=== PATIENT | female | born 1935 | race Caucasian/White ===

== ENCOUNTER 2018-09-27 10:41 | Inpatient (IN) ==
[2018-09-27] MEDS ORDERED: ZANAFLEX PO PRN (14:32)
[2018-09-27] MEDS: NORCO 5/325 MG TAB PO PRN ×2 (14:51→21:22)
[2018-09-27 14:57] LABS: BASOPHILS % (AUTO) 0.6 % (0.2-1.0); EOSINOPHILS # (AUTO) 0.1 x10^3/uL (0.0-0.2); EOSINOPHILS % (AUTO) 1.9 % (0.9-2.9); HEMATOCRIT 34.3 % (36.0-47.0); HEMOGLOBIN 11.4 g/dL (12.0-16.0); LYMPHOCYTES # (AUTO) 1.5 X10^3/uL (1.3-2.9); LYMPHOCYTES % (AUTO) 26.7 % (21.0-51.0); MEAN CORPUSCULAR HEMOGLOBIN 28.2 pg (27.0-34.0); MEAN CORPUSCULAR HGB CONC 33.4 g/dL (33.0-35.0); MEAN CORPUSCULAR VOLUME 84.5 fL (80.0-100.0); MONOCYTES # (AUTO) 0.6 x10^3/uL (0.3-0.8); MONOCYTES % (AUTO) 10.7 % (0.0-13.0); NEUTROPHILS # (AUTO) 3.5 x10^3/uL (2.2-4.8); NEUTROPHILS % (AUTO) 60.1 % (42.0-75.0); PLATELET COUNT 159 X10^3/uL (150.0-450.0); RED BLOOD COUNT 4.05 X10^6/uL (3.5-5.4); RED CELL DISTRIBUTION WIDTH 14.4 % (11.6-16.5); WHITE BLOOD COUNT 5.8 X10^3/uL (3.6-10.0)
[2018-09-27 15:08] LABS: ALBUMIN 3.1 g/dL (3.4-5.0); CALCIUM 8.4 mg/dL (8.5-10.1); CARBON DIOXIDE 29.2 mmol/L (21-32); COR CA(FOR HYPOALB) 9.1 mg/dL (8.5-10.1); CREATININE 1.25 mg/dL (0.55-1.02); TOTAL PROTEIN 7.2 g/dL (6.4-8.2)
[2018-09-27] MEDS: AMBIEN PO SCH (21:20)
[2018-09-27] MEDS: NYSTATIN POWDER TOP SCH (21:20)
[2018-09-27] MEDS: ASPIRIN EC 81 MG PO SCH (21:20)
[2018-09-28] MEDS: ASPIRIN EC 81 MG PO SCH ×2 (08:31→20:41)
[2018-09-28] MEDS: NYSTATIN POWDER TOP SCH ×2 (08:33→20:41)
[2018-09-28] MEDS: MILK OF MAGNESIA PO SCH ×2 (11:10→20:41)
[2018-09-28] MEDS: NORCO 5/325 MG TAB PO PRN (11:13)
--- NOTE | 2018-09-28 13:49 | VAS ---
HISTORY: Status post left total knee arthroplasty. Pain swelling.. Study: Left lower extremity venous vascular examination: Multiplanar ultrasonographic examination of the deep venous system of the left lower extremity was performed using color, grayscale and pulsed Doppler imaging. Augmentation and compression techniques utilized. Comparison: None Findings: The common femoral vein, greater saphenous junction, superficial femoral vein and popliteal vein show normal color flow. No intraluminal filling defects are identified. The common femoral vein, superficial femoral vein and popliteal vein show normal augmentation and compression. IMPRESSION: 1. No evidence of deep venous thrombosis involving the left lower extremity. Reported By:
[2018-09-28] MEDS: AMBIEN PO SCH (20:41)
[2018-09-28] MEDS: COLACE CAP 100 MG PO SCH (20:41)
[2018-09-29] MEDS: ASPIRIN EC 81 MG PO SCH ×2 (08:33→20:45)
[2018-09-29] MEDS: MILK OF MAGNESIA PO SCH ×2 (08:33→20:49)
[2018-09-29] MEDS: NYSTATIN POWDER TOP SCH ×2 (08:34→20:48)
[2018-09-29] MEDS: NORCO 5/325 MG TAB PO PRN ×2 (14:50→20:46)
[2018-09-29] MEDS: AMBIEN PO SCH (20:45)
[2018-09-29] MEDS: COLACE CAP 100 MG PO SCH (20:49)
[2018-09-30 05:25] LABS: BASOPHILS % (AUTO) 0.4 % (0.2-1.0); EOSINOPHILS # (AUTO) 0.2 x10^3/uL (0.0-0.2); EOSINOPHILS % (AUTO) 3.5 % (0.9-2.9); HEMATOCRIT 32.6 % (36.0-47.0); HEMOGLOBIN 10.9 g/dL (12.0-16.0); LYMPHOCYTES # (AUTO) 1.6 X10^3/uL (1.3-2.9); LYMPHOCYTES % (AUTO) 33.6 % (21.0-51.0); MEAN CORPUSCULAR HEMOGLOBIN 28.7 pg (27.0-34.0); MEAN CORPUSCULAR HGB CONC 33.6 g/dL (33.0-35.0); MEAN CORPUSCULAR VOLUME 85.4 fL (80.0-100.0); MEAN PLATELET VOLUME 9.2 fL (7.4-11.0); MONOCYTES # (AUTO) 0.4 x10^3/uL (0.3-0.8); MONOCYTES % (AUTO) 9.4 % (0.0-13.0); NEUTROPHILS # (AUTO) 2.5 x10^3/uL (2.2-4.8); NEUTROPHILS % (AUTO) 53.1 % (42.0-75.0); PLATELET COUNT 168 X10^3/uL (150.0-450.0); RED BLOOD COUNT 3.81 X10^6/uL (3.5-5.4); RED CELL DISTRIBUTION WIDTH 14.8 % (11.6-16.5); WHITE BLOOD COUNT 4.7 X10^3/uL (3.6-10.0)
[2018-09-30 05:33] LABS: ALANINE AMINOTRANSFERASE 15 Units/L (12-78); ALKALINE PHOSPHATASE 79 Units/L (46-116); ASPARTATE AMINO TRANSFERASE 19 Units/L (15-37); BLOOD UREA NITROGEN 22 mg/dL (7-18); CALCIUM 8.5 mg/dL (8.5-10.1); CARBON DIOXIDE 29.6 mmol/L (21-32); CHLORIDE 104 mmol/L (98-107); COR CA(FOR HYPOALB) 9.3 mg/dL (8.5-10.1); COR NA(FOR HYPERGLY) 141 mmol/L (136-145); CREATININE 1.12 mg/dL (0.55-1.02); SODIUM 141 mmol/L (136-145); TOTAL PROTEIN 6.9 g/dL (6.4-8.2); eGFR NON BLACK RACES 50 (>60)
[2018-09-30] MEDS: NORCO 5/325 MG TAB PO PRN ×3 (08:30→20:42)
[2018-09-30] MEDS: ASPIRIN EC 81 MG PO SCH ×2 (08:30→20:43)
[2018-09-30] MEDS: NYSTATIN POWDER TOP SCH ×2 (09:32→21:10)
[2018-09-30] MEDS: MILK OF MAGNESIA PO SCH ×2 (09:32→21:10)
[2018-09-30] MEDS: AMBIEN PO SCH (20:43)
[2018-09-30] MEDS: PriLOSEC PO SCH (20:43)
[2018-09-30] MEDS: COLACE CAP 100 MG PO SCH (21:10)
[2018-10-01] MEDS: MILK OF MAGNESIA PO SCH ×2 (09:21→20:08)
[2018-10-01] MEDS: ASPIRIN EC 81 MG PO SCH ×2 (09:21→20:07)
[2018-10-01] MEDS: NYSTATIN POWDER TOP SCH ×2 (09:21→20:07)
[2018-10-01] MEDS: PriLOSEC PO SCH ×2 (09:21→20:07)
[2018-10-01] MEDS: NORCO 5/325 MG TAB PO PRN ×3 (09:36→23:22)
[2018-10-01] MEDS: AMBIEN PO SCH (20:07)
[2018-10-01] MEDS: COLACE CAP 100 MG PO SCH (20:08)
[2018-10-02] MEDS: NORCO 5/325 MG TAB PO PRN ×2 (06:23→20:53)
[2018-10-02] MEDS: MILK OF MAGNESIA PO SCH ×2 (08:29→20:53)
[2018-10-02] MEDS: PriLOSEC PO SCH ×2 (08:29→20:53)
[2018-10-02] MEDS: ASPIRIN EC 81 MG PO SCH ×2 (08:29→20:53)
[2018-10-02] MEDS: NYSTATIN POWDER TOP SCH ×2 (08:30→20:53)
[2018-10-02] MEDS ORDERED: BUTT CREAM (COMPOUND) TOP PRN (19:53)
[2018-10-02] MEDS: COLACE CAP 100 MG PO SCH (20:53)
[2018-10-02] MEDS: AMBIEN PO SCH (20:54)
[2018-10-03 05:14] LABS: BASOPHILS % (AUTO) 0.5 % (0.2-1.0); EOSINOPHILS # (AUTO) 0.3 x10^3/uL (0.0-0.2); EOSINOPHILS % (AUTO) 5.3 % (0.9-2.9); HEMATOCRIT 34.9 % (36.0-47.0); HEMOGLOBIN 11.5 g/dL (12.0-16.0); LYMPHOCYTES # (AUTO) 1.4 X10^3/uL (1.3-2.9); LYMPHOCYTES % (AUTO) 28.2 % (21.0-51.0); MEAN CORPUSCULAR HEMOGLOBIN 28.7 pg (27.0-34.0); MEAN CORPUSCULAR VOLUME 87.2 fL (80.0-100.0); MEAN PLATELET VOLUME 8.9 fL (7.4-11.0); MONOCYTES # (AUTO) 0.5 x10^3/uL (0.3-0.8); MONOCYTES % (AUTO) 9.7 % (0.0-13.0); NEUTROPHILS # (AUTO) 2.8 x10^3/uL (2.2-4.8); NEUTROPHILS % (AUTO) 56.3 % (42.0-75.0); PLATELET COUNT 199 X10^3/uL (150.0-450.0); RED CELL DISTRIBUTION WIDTH 14.4 % (11.6-16.5)
[2018-10-03 05:35] LABS: ALBUMIN 3.2 g/dL (3.4-5.0); CALCIUM 9.2 mg/dL (8.5-10.1); CARBON DIOXIDE 30.3 mmol/L (21-32); COR CA(FOR HYPOALB) 9.8 mg/dL (8.5-10.1); CREATININE 1.15 mg/dL (0.55-1.02); TOTAL PROTEIN 7.1 g/dL (6.4-8.2)
[2018-10-03] MEDS: PriLOSEC PO SCH ×2 (09:22→21:22)
[2018-10-03] MEDS: NORCO 5/325 MG TAB PO PRN ×2 (09:22→21:22)
[2018-10-03] MEDS: ASPIRIN EC 81 MG PO SCH ×2 (09:22→21:22)
[2018-10-03] MEDS: NYSTATIN POWDER TOP SCH ×2 (09:24→21:22)
[2018-10-03] MEDS: MILK OF MAGNESIA PO SCH ×2 (13:12→21:22)
[2018-10-03] MEDS: AMBIEN PO SCH (21:22)
[2018-10-03] MEDS: COLACE CAP 100 MG PO SCH ×2 (21:22→21:23)
[2018-10-04] MEDS: MILK OF MAGNESIA PO SCH (09:41)
[2018-10-04] MEDS: PriLOSEC PO SCH (09:42)
[2018-10-04] MEDS: ASPIRIN EC 81 MG PO SCH (09:42)
[2018-10-04] MEDS: NORCO 5/325 MG TAB PO PRN ×2 (09:42→13:22)
[2018-10-04] MEDS: NYSTATIN POWDER TOP SCH (09:44)
[2018-10-04 10:36] VITALS: BP 169/79
--- NOTE | 2018-10-05 18:30 | DR.UPDATE ---
H&P Update History and Physical Update: IS STATUS POST LEFT KNEE REPLACEMENT. SURGERY TOOK PLACE ON 09/24/18 BY IN [place], [place]. SHE WAS TRANSFERRED AND ADMITTED HERE FOR A SWINGBED STAY FOR PHYSICAL THERAPY. ON ARRIVAL, SHE IS NOTED WITH A DRESSING TO THE LEFT KNEE. DRESSING REMOVED, SUTURES NOTED TO BE INTACT WITH NO SIGNS OR SX INFECTION. THERE IS SOME BRUISING BEHIND THE LEFT KNEE. SHE REPORTS MILD PAIN TO THE LEFT KNEE, OTHERWISE, NO COMPLAINTS. WE WILL OBTAIN A CBC AND CMP. PHYSICAL THERAPY WILL BEGIN TO WORK WITH PATIENT TODAY. OTHERWISE, WE WILL CONTINUE TO MONITOR AND PERFORM DAILY DRESSING CHANGES AND WOUND CARE. Changes noted: NO Yes with the following:
--- NOTE | 2018-10-05 18:39 | PCM.PROG ---
Progress Note - Progress Note for Day of Date of Exam: 09/30/18 - Subjective Subjective: IS DAY 6 STATUS POST LEFT KNEE REPLACMENT. SHE IS SWINGBED STATUS FOR PHYSICAL THERAPY. TODAY, SHE IS ALERT AND ORIENTED, SITTING IN CHAIR ON MORNING ROUNDS. SHE REPORTS MILD PAIN TO THE LEFT KNEE, OTHERWISE, NO COMPLAINTS. ON EXAMINATION, HEART IS REGULAR IN RATE AND RHYTHM. BILATERAL LUNGS ARE NOTED WITH DIMINISHED LUNG SOUNDS THROUGHOUT. ABDOMEN IS ROUND, SOFT, AND NON-TEDNER WITH NORMAL BOWEL SOUNDS NOTED IN ALL QUADRANTS. WILLA INTACT TO LEFT KNEE WITH NO SIGNS OR SX INFECTION NOTED. HER VITALS THIS MORNING ARE 99.0-67-22-96%-140/65. LABS WERE OBTAINED. ABNORMAL LAB VALUES INCLUDE THE FOLLOWING: HGB 10.9, HCT 32.6, BUN 22, CREATININE 1.12, GLUCOSE 113, ALBUMIN 3.0. SHE REPORTS THAT PAIN IS WELL MANAGED WITH ORAL MEDICATIONS. SHE IS PARTICIPATING AND AMBULATING WELL WITH PHYSICAL THERAPY. WE WILL CONTINUE WITH CURRENT PLAN OF CARE AND CONTINUE TO MONITOR. - Past Medical Family Social History Past Med/Fam/Surg Hx: No changes since H&P Allergies: Allergies No Known Drug Allergies Allergy (Verified 09/27/18 15:19) - Review of Systems ROS: No change since H&P - Vital Signs and I&O's Vital Signs: Temperature 98.1 F Pulse Rate [Left Brachial] 80 Pulse Rate [Right Brachial] 73 Pulse Rate [Apical] 71 Respiratory Rate 18 Blood Pressure [Right Arm] 169/79 Blood Pressure [Left Arm] 145/72 Blood Pressure 115/60 O2 Sat by Pulse Oximetry 92 Intake and Output: Intake & Output 10/03/18 10/04/18 10/05/18 10/06/18 11:59 11:59 11:59 11:59 Intake Total 820 / 820 1400 / 1400 Balance 820 / 820 1400 / 1400 - Physical Exam Oriented: Normal Eyes: Normal Ear: Normal Nose: Normal Throat: Normal Respiratory: Generalized, Diminished Cardiovascular: Normal : Normal Auscultation: Bowel Sounds: Normal Palpation: Normal Skin: Wound (LEFT KNEE SURGICAL WOUND ) Musculoskeletal: Left, Knee, Tender Psychiatric: Normal Mood Description: Calm Affect: Normal Speech Pattern: Clear, Appropriate - Laboratory and Diagnostics Result Diagrams: 10/03/18 04:50 10/03/18 04:50 Labs: Laboratory WBC 5.0 X10^3/uL (3.6-10.0) 10/03/18 04:50 RBC 4.00 X10^6/uL (3.5-5.4) 10/03/18 04:50 Hgb 11.5 g/dL (12.0-16.0) L 10/03/18 04:50 Hct 34.9 % (36.0-47.0) L 10/03/18 04:50 MCV 87.2 fL (80.0-100.0) 10/03/18 04:50 MCH 28.7 pg (27.0-34.0) 10/03/18 04:50 MCHC 33.0 g/dL (33.0-35.0) 10/03/18 04:50 RDW 14.4 % (11.6-16.5) 10/03/18 04:50 Plt Count 199 X10^3/uL (150.0-450.0) 10/03/18 04:50 MPV 8.9 fL (7.4-11.0) 10/03/18 04:50 Neut % (Auto) 56.3 % (42.0-75.0) 10/03/18 04:50 Lymph % (Auto) 28.2 % (21.0-51.0) 10/03/18 04:50 [place] % (Auto) 9.7 % (0.0-13.0) 10/03/18 04:50 Eos % (Auto) 5.3 % (0.9-2.9) H 10/03/18 04:50 Baso % (Auto) 0.5 % (0.2-1.0) 10/03/18 04:50 Neut # (Auto) 2.8 x10^3/uL (2.2-4.8) 10/03/18 04:50 Lymph # (Auto) 1.4 X10^3/uL (1.3-2.9) 10/03/18 04:50 [place] # (Auto) 0.5 x10^3/uL (0.3-0.8) 10/03/18 04:50 Eos # (Auto) 0.3 x10^3/uL (0.0-0.2) H 10/03/18 04:50 Baso # (Auto) 0.0 X10^3/uL (0.0-0.1) 10/03/18 04:50 Absolute Nucleated RBC 0.0 /100WBC 10/03/18 04:50 Sodium 140 mmol/L (136-145) 10/03/18 04:50 Corrected Sodium 140 mmol/L (136-145) 10/03/18 04:50 Potassium 4.6 mmol/L (3.5-5.1) 10/03/18 04:50 Chloride 103 mmol/L (98-107) 10/03/18 04:50 Carbon Dioxide 30.3 mmol/L (21-32) 10/03/18 04:50 BUN 24 mg/dL (7-18) H 10/03/18 04:50 Creatinine 1.15 mg/dL (0.55-1.02) H 10/03/18 04:50 Est GFR (MDRD) Af Amer 58 (>60) L 10/03/18 04:50 Est GFR (MDRD) Non-Af 48 (>60) L 10/03/18 04:50 Glucose 113 mg/dL (65-99) H 10/03/18 04:50 Calcium 9.2 mg/dL (8.5-10.1) 10/03/18 04:50 Corrected Calcium 9.8 mg/dL (8.5-10.1) 10/03/18 04:50 Total Bilirubin 0.40 mg/dL (0.2-1.0) 10/03/18 04:50 AST 18 Units/L (15-37) 10/03/18 04:50 ALT 19 Units/L (12-78) 10/03/18 04:50 Alkaline Phosphatase 80 Units/L (46-116) 10/03/18 04:50 Total Protein 7.1 g/dL (6.4-8.2) 10/03/18 04:50 Albumin 3.2 g/dL (3.4-5.0) L 10/03/18 04:50 Globulin 3.9 g/dL (2.5-4.5) 10/03/18 04:50 Albumin/Globulin Ratio 0.8 Ratio (1.1-2.1) L 10/03/18 04:50 - Plan (1) S/P knee replacement Status: Acute Qualifiers: Laterality: left Qualified Code(s): Z96.652 - Presence of left artificial knee joint Plan: WOUND CARE, PAIN MANAGMENT, PHYSICAL THERAPY, CONTINUE TO MONITOR (2) GERD (gastroesophageal reflux disease) Status: Acute Qualifiers: Esophagitis presence: esophagitis presence not specified Qualified Code(s): K21.9 - Gastro-esophageal reflux disease without esophagitis Plan: CONTINUE OMEPRAZOLE (3) HTN (hypertension) Status: Acute Qualifiers: Hypertension type: essential hypertension Qualified Code(s): I10 - Essential (primary) hypertension Plan: CONTINUE LISINOPRIL, CONTINUE TO MONITOR (4) Hyperlipidemia Status: Acute Qualifiers: Hyperlipidemia type: mixed hyperlipidemia Qualified Code(s): E78.2 - Mixed hyperlipidemia Plan: CONTINUE ATORVASTATIN
--- NOTE | 2018-10-05 18:47 | PCM.PROG ---
Progress Note - Progress Note for Day of Date of Exam: 10/03/18 - Subjective Subjective: IS DAY 9 STATUS POST LEFT KNEE REPLACMENT. SHE IS SWINGBED STATUS FOR PHYSICAL THERAPY. TODAY, SHE IS ALERT AND ORIENTED, SITTING IN CHAIR ON MORNING ROUNDS. SHE REPORTS MILD PAIN TO THE LEFT KNEE, OTHERWISE, NO COMPLAINTS. ON EXAMINATION, HEART IS REGULAR IN RATE AND RHYTHM. BILATERAL LUNGS ARE NOTED WITH DIMINISHED LUNG SOUNDS THROUGHOUT. ABDOMEN IS ROUND, SOFT, AND NON-TEDNER WITH NORMAL BOWEL SOUNDS NOTED IN ALL QUADRANTS. WILLA INTACT TO LEFT KNEE WITH NO SIGNS OR SX INFECTION NOTED. HER VITALS THIS MORNING ARE 97.9-66-18-94%-147/65. LABS WERE OBTAINED. ABNORMAL LAB VALUES INCLUDE THE FOLLOWING: HGB 11.5, HCT 34.9, B. SUN 24, CREATININE 1.15, GLUCOSE 113, ALBUMIN 3.2. SHE REPORTS THAT PAIN IS WELL MANAGED WITH ORAL MEDICATIONS. SHE IS PARTICIPATING AND AMBULATING WELL WITH PHYSICAL THERAPY. SHE IS EXPECTED TO BE DISCHARGED TOMORROW. SHE WILL BE SET UP WITH OUTPATIENT PHYSICAL THERAPY. WE WILL CONTINUE WITH CURRENT PLAN OF CARE AND CONTINUE TO MONITOR. - Past Medical Family Social History Past Med/Fam/Surg Hx: No changes since H&P Allergies: Allergies No Known Drug Allergies Allergy (Verified 09/27/18 15:19) - Review of Systems ROS: No change since H&P - Vital Signs and I&O's Vital Signs: Temperature 98.1 F Pulse Rate [Left Brachial] 80 Pulse Rate [Right Brachial] 73 Pulse Rate [Apical] 71 Respiratory Rate 18 Blood Pressure [Right Arm] 169/79 Blood Pressure [Left Arm] 145/72 Blood Pressure 115/60 O2 Sat by Pulse Oximetry 92 Intake and Output: Intake & Output 10/03/18 10/04/18 10/05/18 10/06/18 11:59 11:59 11:59 11:59 Intake Total 820 / 820 1400 / 1400 Balance 820 / 820 1400 / 1400 - Physical Exam Oriented: Normal Eyes: Normal Ear: Normal Nose: Normal Throat: Normal Respiratory: Generalized, Diminished Cardiovascular: Normal : Normal Auscultation: Bowel Sounds: Normal Palpation: Normal Skin: Wound (LEFT KNEE SURGICAL WOUND ) Musculoskeletal: Left, Knee, Tender Psychiatric: Normal Mood Description: Calm Affect: Normal Speech Pattern: Clear, Appropriate - Laboratory and Diagnostics Result Diagrams: 10/03/18 04:50 10/03/18 04:50 Labs: Laboratory WBC 5.0 X10^3/uL (3.6-10.0) 10/03/18 04:50 RBC 4.00 X10^6/uL (3.5-5.4) 10/03/18 04:50 Hgb 11.5 g/dL (12.0-16.0) L 10/03/18 04:50 Hct 34.9 % (36.0-47.0) L 10/03/18 04:50 MCV 87.2 fL (80.0-100.0) 10/03/18 04:50 MCH 28.7 pg (27.0-34.0) 10/03/18 04:50 MCHC 33.0 g/dL (33.0-35.0) 10/03/18 04:50 RDW 14.4 % (11.6-16.5) 10/03/18 04:50 Plt Count 199 X10^3/uL (150.0-450.0) 10/03/18 04:50 MPV 8.9 fL (7.4-11.0) 10/03/18 04:50 Neut % (Auto) 56.3 % (42.0-75.0) 10/03/18 04:50 Lymph % (Auto) 28.2 % (21.0-51.0) 10/03/18 04:50 [place] % (Auto) 9.7 % (0.0-13.0) 10/03/18 04:50 Eos % (Auto) 5.3 % (0.9-2.9) H 10/03/18 04:50 Baso % (Auto) 0.5 % (0.2-1.0) 10/03/18 04:50 Neut # (Auto) 2.8 x10^3/uL (2.2-4.8) 10/03/18 04:50 Lymph # (Auto) 1.4 X10^3/uL (1.3-2.9) 10/03/18 04:50 [place] # (Auto) 0.5 x10^3/uL (0.3-0.8) 10/03/18 04:50 Eos # (Auto) 0.3 x10^3/uL (0.0-0.2) H 10/03/18 04:50 Baso # (Auto) 0.0 X10^3/uL (0.0-0.1) 10/03/18 04:50 Absolute Nucleated RBC 0.0 /100WBC 10/03/18 04:50 Sodium 140 mmol/L (136-145) 10/03/18 04:50 Corrected Sodium 140 mmol/L (136-145) 10/03/18 04:50 Potassium 4.6 mmol/L (3.5-5.1) 10/03/18 04:50 Chloride 103 mmol/L (98-107) 10/03/18 04:50 Carbon Dioxide 30.3 mmol/L (21-32) 10/03/18 04:50 BUN 24 mg/dL (7-18) H 10/03/18 04:50 Creatinine 1.15 mg/dL (0.55-1.02) H 10/03/18 04:50 Est GFR (MDRD) Af Amer 58 (>60) L 10/03/18 04:50 Est GFR (MDRD) Non-Af 48 (>60) L 10/03/18 04:50 Glucose 113 mg/dL (65-99) H 10/03/18 04:50 Calcium 9.2 mg/dL (8.5-10.1) 10/03/18 04:50 Corrected Calcium 9.8 mg/dL (8.5-10.1) 10/03/18 04:50 Total Bilirubin 0.40 mg/dL (0.2-1.0) 10/03/18 04:50 AST 18 Units/L (15-37) 10/03/18 04:50 ALT 19 Units/L (12-78) 10/03/18 04:50 Alkaline Phosphatase 80 Units/L (46-116) 10/03/18 04:50 Total Protein 7.1 g/dL (6.4-8.2) 10/03/18 04:50 Albumin 3.2 g/dL (3.4-5.0) L 10/03/18 04:50 Globulin 3.9 g/dL (2.5-4.5) 10/03/18 04:50 Albumin/Globulin Ratio 0.8 Ratio (1.1-2.1) L 10/03/18 04:50 - Plan (1) S/P knee replacement Status: Acute Qualifiers: Laterality: left Qualified Code(s): Z96.652 - Presence of left artificial knee joint Plan: WOUND CARE, PAIN MANAGMENT, PHYSICAL THERAPY, CONTINUE TO MONITOR (2) GERD (gastroesophageal reflux disease) Status: Acute Qualifiers: Esophagitis presence: esophagitis presence not specified Qualified Code(s): K21.9 - Gastro-esophageal reflux disease without esophagitis Plan: CONTINUE OMEPRAZOLE (3) HTN (hypertension) Status: Acute Qualifiers: Hypertension type: essential hypertension Qualified Code(s): I10 - Essential (primary) hypertension Plan: CONTINUE LISINOPRIL, CONTINUE TO MONITOR (4) Hyperlipidemia Status: Acute Qualifiers: Hyperlipidemia type: mixed hyperlipidemia Qualified Code(s): E78.2 - Mixed hyperlipidemia Plan: CONTINUE ATORVASTATIN
--- NOTE | 2018-10-21 00:44 | DR.CARTERD ---
- Discharge Summary for: Discharge Summary for Date of:: 10/04/18 - Admission Date Date of Admission: 09/27/18 - Admission Diagnoses Admission Diagnosis: (1) S/P knee replacement (2) GERD (gastroesophageal reflux disease) (3) HTN (hypertension) (4) Hyperlipidemia - Discharge Date Discharge Date: 10/04/18 - Discharge Diagnoses Discharge Diagnosis: (1) S/P knee replacement (2) GERD (gastroesophageal reflux disease) (3) HTN (hypertension) (4) Hyperlipidemia - Hospital Course Hospital Course: DAY ONE, IS STATUS POST LEFT KNEE REPLACEMENT. SURGERY TOOK PLACE ON 09/24/18 BY IN [place], [place]. SHE WAS TRANSFERRED AND ADMITTED HERE FOR A SWINGBED STAY FOR PHYSICAL THERAPY. ON ARRIVAL, SHE WAS NOTED WITH A DRESSING TO THE LEFT KNEE. DRESSING REMOVED, SUTURES NOTED TO BE INTACT WITH NO SIGNS OR SX INFECTION. THERE WAS SOME BRUISING BEHIND THE LEFT KNEE. SHE REPORTED MILD PAIN TO THE LEFT KNEE, OTHERWISE, NO COMPLAINTS. WE OBTAINED A CBC AND CMP. PHYSICAL THERAPY BEGAN TO WORK WITH PATIENT . WE CONTINUED TO MONITOR AND PERFORM DAILY DRESSING CHANGES AND WOUND CARE. DAY FOUR, IS DAY 6 STATUS POST LEFT KNEE REPLACMENT. SHE WAS A SWINGBED STATUS FOR PHYSICAL THERAPY. TODAY, SHE WAS ALERT AND ORIENTED, SITTING IN CHAIR ON MORNING ROUNDS. SHE REPORTED MILD PAIN TO THE LEFT KNEE, OTHERWISE, NO COMPLAINTS. ON EXAMINATION, HEART WAS REGULAR IN RATE AND RHYTHM. BILATERAL LUNGS WERE NOTED WITH DIMINISHED LUNG SOUNDS THROUGHOUT. ABDOMEN WAS ROUND, SOFT, AND NON-TEDNER WITH NORMAL BOWEL SOUNDS NOTED IN ALL QUADRANTS. WILLA INTACT TO LEFT KNEE WITH NO SIGNS OR SX INFECTION NOTED. HER VITALS THIS MORNING WERE 99.0-67-22-96%-140/65. LABS WERE OBTAINED. ABNORMAL LAB VALUES INCLUDED THE FOLLOWING: HGB 10.9, HCT 32.6, BUN 22, CREATININE 1.12, GLUCOSE 113, ALBUMIN 3.0. SHE REPORTS THAT PAIN IS WELL MANAGED WITH ORAL MEDICATIONS. SHE WAS PARTICIPATING AND AMBULATING WELL WITH PHYSICAL THERAPY. WE CONTINUED WITH CURRENT PLAN OF CARE AND CONTINUED TO MONITOR. DAY SEVEN, WAS DAY 9 STATUS POST LEFT KNEE REPLACMENT. SHE WAS SWINGBED STATUS FOR PHYSICAL THERAPY. TODAY, SHE WAS ALERT AND ORIENTED, SITTING IN CHAIR ON MORNING ROUNDS. SHE REPORTED MILD PAIN TO THE LEFT KNEE, OTHERWISE, NO COMPLAINTS. ON EXAMINATION, HEART WAS REGULAR IN RATE AND RHYTHM. BILATERAL LUNGS WERE NOTED WITH DIMINISHED LUNG SOUNDS THROUGHOUT. ABDOMEN WAS ROUND, SOFT, AND NON-TEDNER WITH NORMAL BOWEL SOUNDS NOTED IN ALL QUADRANTS. WILLA INTACT TO LEFT KNEE WITH NO SIGNS O R SX INFECTION NOTED. HER VITALS THIS MORNING ARE 97.9-66-18-94%-147/65. LABS WERE OBTAINED. ABNORMAL LAB VALUES INCLUDED THE FOLLOWING: HGB 11.5, HCT 34.9, BUN 24, CREATININE 1.15, GLUCOSE 113, ALBUMIN 3.2. SHE REPORTS THAT PAIN IS WELL MANAGED WITH ORAL MEDICATIONS. SHE WAS PARTICIPATING AND AMBULATING WELL WITH PHYSICAL THERAPY. SHE WAS EXPECTED TO BE DISCHARGED TOMORROW. SHE IS TO BE SET UP WITH OUTPATIENT PHYSICAL THERAPY. WE CONTINUED WITH CURRENT PLAN OF CARE AND CONTINUED TO MONITOR. DAY EIGHT, PATIENT SITTING UP IN CHAIR ON MORNING ROUNDS. PATIENT VOICED ZERO COMPLAINTS THIS AM. NO SIGNS AND SYMPTOMS OF ACUTE DISTRESS NOTED. PATIENT HAS BEEN PERFORMING WELL WITH PHYSICAL THERAPY. VITALS WERE STABLE. WE PLANNED FOR DISCHARGE. INSTRUCTIONS FOR MEDICATIONS AND FOLLOW UP WERE DISCUSSED WITH PATIENT AND FAMILY, BOTH VOICED UNDERSTANDING. PATIENT WAS DISCHARGED HOME IN STABLE CONDITION WITH FAMILY. - Discharge Medications Discharge Medications: Home Medication List aspirin [Aspir-81] 81 mg PO BID 09/27/18 [History] atorvastatin 20 mg PO HS 09/27/18 [History] gabapentin 600 mg PO DAILY 09/27/18 [History] hydrocodone-acetaminophen [[place]] 1 - 2 tab PO Q4-6H PRN 09/27/18 [History] lisinopril 20 mg PO DAILY 09/27/18 [History] methocarbamol 500 mg PO TID PRN 09/27/18 [History] omeprazole 40 mg PO DAILY 09/27/18 [History] Prescriptions: - Discharge Disposition Discharge Disposition: PATIENT TO FOLLOW UP IN OUR OFFICE IN ONE WEEK AND WITH DR. ORTIZ ON NEXT AVAILABLE APPOINTMENT TIME.
== END 2018-10-04 14:25 | disposition home or self-care (01) | DRG 950 ==
LOC: MED/SURG 14:07
PROVIDERS: ADMIT Internal Medicine; ATTEND Internal Medicine
DX: Z96.652 Presence of left artificial knee joint; E78.2 Mixed hyperlipidemia; K21.9 Gastro-esophageal reflux disease without esophagitis; I10 Essential (primary) hypertension; M25.562 Pain in left knee; Z51.89 Encounter for other specified aftercare

== ENCOUNTER 2025-01-20 13:43 | Observation (INO) ==
[2025-01-20] MEDS: NS 1,000 ML IV 1,000 ML IV SCH (15:34)
--- NOTE | 2025-01-20 16:13 | EKG ---
Test Reason : new admission Blood Pressure : */* mmHG Vent. Rate : 78 BPM Atrial Rate : 78 BPM P-R Int : 202 ms QRS Dur : 98 ms QT Int : 370 ms P-R-T Axes : 60 -6 28 degrees QTc Int : 421 ms Normal sinus rhythm Normal ECG No previous ECGs available Confirmed by Nato Farris MD ([id number]) on 01/21/2025 7:28:18 AM Referred By: Confirmed By: Nato Farris MD
[2025-01-20 18:07] VITALS: BMI 26.4
[2025-01-20 19:08] LABS: BASOPHILS # (AUTO) 0.1 X10^3/uL (0.0-0.1); BASOPHILS % (AUTO) 1.1 % (0.2-1.0); EOSINOPHILS # (AUTO) 0.1 x10^3/uL (0.0-0.2); EOSINOPHILS % (AUTO) 1.5 % (0.9-2.9); HEMATOCRIT 33.1 % (36.0-47.0); HEMOGLOBIN 11.1 g/dL (12.0-16.0); LYMPHOCYTES # (AUTO) 1.8 X10^3/uL (1.3-2.9); LYMPHOCYTES % (AUTO) 31.6 % (21.0-51.0); MEAN CORPUSCULAR HEMOGLOBIN 26.5 pg (27.0-34.0); MEAN CORPUSCULAR HGB CONC 33.4 g/dL (33.0-35.0); MEAN CORPUSCULAR VOLUME 79.3 fL (80.0-100.0); MONOCYTES # (AUTO) 0.5 x10^3/uL (0.3-0.8); MONOCYTES % (AUTO) 7.9 % (0.0-13.0); NEUTROPHILS # (AUTO) 3.3 x10^3/uL (2.2-4.8); NEUTROPHILS % (AUTO) 57.9 % (42.0-75.0); PLATELET COUNT 200 X10^3/uL (150.0-450.0); RED BLOOD COUNT 4.18 X10^6/uL (3.5-5.4); RED CELL DISTRIBUTION WIDTH 15.4 % (11.6-16.5); WHITE BLOOD COUNT 5.8 X10^3/uL (3.6-10.0)
[2025-01-20 19:38] LABS: ALBUMIN 2.7 g/dL (3.4-5.0); CARBON DIOXIDE 26.5 mmol/L (21-32); CREATININE 1.47 mg/dL (0.55-1.02); POTASSIUM 3.6 mmol/L (3.5-5.1); TOTAL PROTEIN 6.9 g/dL (6.4-8.2)
[2025-01-20] MEDS ORDERED: CONSULT PHARMACY - POTASSIUM & MAGNESIUM XX SCH (21:00)
[2025-01-20] MEDS: K-DUR TAB 20 MEQ PO SCH (21:24)
[2025-01-21 04:45] VITALS: RESP 18
[2025-01-21 05:18] LABS: ALANINE AMINOTRANSFERASE 10 Units/L (12-78); ALBUMIN 2.7 g/dL (3.4-5.0); ALKALINE PHOSPHATASE 115 Units/L (46-116); ASPARTATE AMINO TRANSFERASE 17 Units/L (15-37); BLOOD UREA NITROGEN 17 mg/dL (7-18); CALCIUM 9.1 mg/dL (8.5-10.1); CARBON DIOXIDE 26.3 mmol/L (21-32); CHLORIDE 101 mmol/L (98-107); COR CA(FOR HYPOALB) 10.1 mg/dL (8.5-10.1); CREATININE 1.22 mg/dL (0.55-1.02); GLUCOSE 104 mg/dL (65-99); MAGNESIUM 1.9 mg/dL (2.0-2.9); POTASSIUM 4.2 mmol/L (3.5-5.1); SODIUM 134 mmol/L (136-145); TOTAL PROTEIN 7.1 g/dL (6.4-8.2); eGFR NON BLACK RACES 44 (>60)
[2025-01-21 06:53] LABS: EOSINOPHILS # (AUTO) 0.1 x10^3/uL (0.0-0.2); MEAN CORPUSCULAR VOLUME 80.3 fL (80.0-100.0); MONOCYTES # (AUTO) 0.5 x10^3/uL (0.3-0.8)
[2025-01-21 06:57] LABS: BASOPHILS % (AUTO) 0.8 % (0.2-1.0); EOSINOPHILS % (AUTO) 2.5 % (0.9-2.9); HEMATOCRIT 35.3 % (36.0-47.0); HEMOGLOBIN 11.5 g/dL (12.0-16.0); LYMPHOCYTES # (AUTO) 1.7 X10^3/uL (1.3-2.9); LYMPHOCYTES % (AUTO) 30.1 % (21.0-51.0); MEAN CORPUSCULAR HEMOGLOBIN 26.2 pg (27.0-34.0); MEAN CORPUSCULAR HGB CONC 32.7 g/dL (33.0-35.0); MEAN PLATELET VOLUME 9.7 fL (7.4-11.0); MONOCYTES % (AUTO) 9.4 % (0.0-13.0); NEUTROPHILS # (AUTO) 3.2 x10^3/uL (2.2-4.8); NEUTROPHILS % (AUTO) 57.2 % (42.0-75.0); PLATELET COUNT 181 X10^3/uL (150.0-450.0); RED CELL DISTRIBUTION WIDTH 15.5 % (11.6-16.5); WHITE BLOOD COUNT 5.7 X10^3/uL (3.6-10.0)
[2025-01-21] MEDS ORDERED: CONSULT PHARMACY - POTASSIUM & MAGNESIUM XX SCH (07:00)
[2025-01-21 07:29] LABS: PLATELET MORPHOLOGY COMMENT NORMAL (NORMAL)
[2025-01-21] MEDS: READI-CAT 2 ONE (09:12)
[2025-01-21] MEDS: OMNIPAQUE 350 mg/mL 100 mL BTL 100 ML ONE (09:12)
[2025-01-21] MEDS: NS 500 ML IV 500 ML IV ONE (09:12)
[2025-01-21] MEDS ORDERED: AMBIEN PO PRN (10:12)
[2025-01-21] MEDS: SYNTHROID 50 mcg TAB PO SCH (11:28)
[2025-01-21] MEDS: LIPITOR TAB 10 MG PO SCH (11:28)
[2025-01-21] MEDS: NORVASC TAB 5 MG PO SCH (11:29)
[2025-01-21] MEDS: PROTONIX TAB 40 MG PO SCH (11:29)
--- NOTE | 2025-01-21 11:34 | CT ---
EXAMINATION:ABDCMEN/PELVIS WITH CONHISTORY:Weakness, N/V, weight loss; .COMPARISON:None.TECHNIQUE:Postcontrast CT abdomen and pelvis was performed.. Reformatted images were obtained as well. Oral contrast was utilized.The above CT scan was done with automated exposure control and the mA and kV was adjusted to obtain quality images according to patient size.FINDINGS:Lung bases: No acute findings.Liver: No acute finding or focal lesion.GB/Biliary: Cholecystectomy. No dilated ductSpleen: Normal size and densityPancreas: No acute findings. Atrophy. No pseudocyst. Dilated pancreatic duct measuring 4 mm which may represent chronic pancreatitisAdrenal Glands: No massKidneys: No obstructing stone or hydronephrosis. Heterogeneous solid mass in the right mid and upper pole of the kidney measuring 6.5 x 6.3 x 6.7 cm. This may represent a renal cell carcinoma. This extends to the hilum.Abdominal aorta: Tapers normally. Atherosclerotic calcification. Mesenteric vessels are patent.Retroperitoneum: No pathologically enlarged lymph nodes.Bowel: No thickened or dilated loops of bowel, free fluid, free air, pneumatosis or abscess. Moderate stool. Surgical clips in the right lower quadrant may represent appendectomy. Appendix not seen. No inflammatory process in the right lower quadrant. No CT evidence for diverticulitis or appendicitisBladder/: Ureters and bladder unremarkable. Bladder is partially distended. Hysterectomy. No pelvic or adnexal mass noted.Osseous: Minimal grade 1 spondylolisthesis at L5-S1. No acute findings or bony lesions.IMPRESSION:Solid mass in the right mid to upper pole of the kidney highly suspicious for renal cell neoplasm.No CT evidence for appendicitis, obstruction or diverticulitis. Possible appendectomy.Minimal wall thickening in the bladder may represent lack of distention or cystitis. Correlate with urinalysisTHIS IS AN ELECTRONICALLY VERIFIED FINAL REPORT01/21/2025 11:30 AM - Electronically signed by Ryan Juarez MD
--- NOTE | 2025-01-21 11:37 | RAD ---
EXAM: CHEST, 1 VIEW HISTORY: Weakness, N/V, weight loss; COMPARISON: Prior study or studies were utilized for comparison during interpretation with the most relevant lidia ed 09/08/2020 TECHNIQUE: CHEST, 1 VIEW FINDINGS: Chest: Lines and tubes: None Mediastinum: Cardiac and mediastinal shadow is within normal limits for size and contour. Pulmonary vessels: No pulmonary vascular congestion. Lung barrow: No suspicious airspace opacity. Pleura: No effusion. No pneumothorax. Bones and soft tissues: No acute osseous or soft tissue abnormality. IMPRESSION: 1. No acute cardiopulmonary abnormality THIS IS AN ELECTRONICALLY VERIFIED FINAL REPORT 01/21/2025 11:34 AM - Electronically signed by iGo Quinonez MD
--- NOTE | 2025-01-21 12:20 | DR.H&P ---
H&P History & Physical for Day of: H&P Date: 01/21/25 Chief Complaint Chief Complaint: weight loss History of Present Illness History of Present Illness: Patient with approximately 31 pound weight loss over the last 4 months. Was last seen at her PCPs office in August 2024 and then again yesterday. She has had some falls at home since those visits. She denies any trouble swallowing like she had 2 years ago when she needed an esophageal dilation. She reports she just does not feel like eating. Denies any constipation, diarrhea, abdominal pain, dysphagia, or nausea/vomiting. ROS: 12 point ROS otherwise negative. PE: Elderly female in no acute distress sitting in the bedside chair. Head NCAT, EOMI, hearing intact conversation, neck full range of motion, trachea midline. Heart regular rate and rhythm. Lungs clear bilaterally. Belly is soft and nontender with bowel sounds present. Mood and affect are appropriate. No swelling of her extremities with good range of motion. Past Medical History Past Medical History: Dyslipidemia, GERD, Gout and Hypertension Past Surgical History Surgical History: Hysterectomy, Ortho Surgery, Tonsillectomy and Other Family History Family Medical History: Coronary Artery Disease Social History Does any household member use tobacco: No Alcohol Use: None Drug Use: None Medications Home Medications: Home Medications Medication Instructions Recorded Confirmed Type amlodipine 5 mg tablet 5 mg PO BID 02/06/24 01/20/25 History levothyroxine 50 mcg tablet 50 mcg PO QDAY 02/06/24 01/20/25 History pantoprazole 40 mg tablet,delayed 40 mg PO QDAY 02/06/24 01/20/25 History release zolpidem 10 mg tablet 10 mg PO QPM PRN 02/06/24 01/20/25 History atorvastatin 10 mg tablet 10 mg PO QDAY 09/08/24 01/20/25 History Allergies Allergies Allergy/AdvReac Type Severity Reaction Status Date / Time No Known Drug Allergies Allergy Verified 09/29/21 12:27 Labs 01/21/25 05:35 01/21/25 04:48 Labs: Laboratory WBC 5.7 X10^3/uL (3.6-10.0) 01/21/25 05:35 RBC 4.40 X10^6/uL (3.5-5.4) 01/21/25 05:35 Hgb 11.5 g/dL (12.0-16.0) L 01/21/25 05:35 Hct 35.3 % (36.0-47.0) L 01/21/25 05:35 MCV 80.3 fL (80.0-100.0) 01/21/25 05:35 MCH 26.2 pg (27.0-34.0) L 01/21/25 05:35 MCHC 32.7 g/dL (33.0-35.0) L 01/21/25 05:35 RDW 15.5 % (11.6-16.5) 01/21/25 05:35 Plt Count 181 X10^3/uL (150.0-450.0) 01/21/25 05:35 Plt Count Comment Adequate (ADEQUATE) 01/21/25 05:35 MPV 9.7 fL (7.4-11.0) 01/21/25 05:35 Neut % (Auto) 57.2 % (42.0-75.0) 01/21/25 05:35 Lymph % (Auto) 30.1 % (21.0-51.0) 01/21/25 05:35 [place] % (Auto) 9.4 % (0.0-13.0) 01/21/25 05:35 Eos % (Auto) 2.5 % (0.9-2.9) 01/21/25 05:35 Baso % (Auto) 0.8 % (0.2-1.0) 01/21/25 05:35 Neut # (Auto) 3.2 x10^3/uL (2.2-4.8) 01/21/25 05:35 Lymph # (Auto) 1.7 X10^3/uL (1.3-2.9) 01/21/25 05:35 [place] # (Auto) 0.5 x10^3/uL (0.3-0.8) 01/21/25 05:35 Eos # (Auto) 0.1 x10^3/uL (0.0-0.2) 01/21/25 05:35 Baso # (Auto) 0.0 X10^3/uL (0.0-0.1) 01/21/25 05:35 Absolute Nucleated RBC 0.2 /100WBC 01/21/25 05:35 Plt Morphology Comment Normal (NORMAL) 01/21/25 05:35 RBC Morphology Normal (NORMAL) 01/21/25 05:35 Sodium 134 mmol/L (136-145) L 01/21/25 04:48 Corrected Sodium TNP 01/21/25 04:48 Potassium 4.2 mmol/L (3.5-5.1) 01/21/25 04:48 Chloride 101 mmol/L (98-107) 01/21/25 04:48 Carbon Dioxide 26.3 mmol/L (21-32) 01/21/25 04:48 BUN 17 mg/dL (7-18) 01/21/25 04:48 Creatinine 1.22 mg/dL (0.55-1.02) H 01/21/25 04:48 Est GFR (MDRD) Af Amer 53 (>60) L 01/21/25 04:48 Est GFR (MDRD) Non-Af 44 (>60) L 01/21/25 04:48 Glucose 104 mg/dL (65-99) H 01/21/25 04:48 Calcium 9.1 mg/dL (8.5-10.1) 01/21/25 04:48 Corrected Calcium 10.1 mg/dL (8.5-10.1) 01/21/25 04:48 Magnesium 1.9 mg/dL (2.0-2.9) L 01/21/25 04:48 Total Bilirubin 0.50 mg/dL (0.2-1.0) 01/21/25 04:48 AST 17 Units/L (15-37) 01/21/25 04:48 ALT 10 Units/L (12-78) L 01/21/25 04:48 Alkaline Phosphatase 115 Units/L (46-116) 01/21/25 04:48 Troponin I High Sens 51.8 ng/L (4.0-60.0) 01/21/25 01:10 Total Protein 7.1 g/dL (6.4-8.2) 01/21/25 04:48 Albumin 2.7 g/dL (3.4-5.0) L 01/21/25 04:48 Globulin 4.4 g/dL (2.5-4.5) 01/21/25 04:48 Albumin/Globulin Ratio 0.6 Ratio (1.1-2.1) L 01/21/25 04:48 Physical Exam Vital Signs: Vital Signs Temperature 98.0 F Pulse Rate [Brachial] 68 Respiratory Rate 18 Blood Pressure [Right Arm] 137/63 O2 Sat by Pulse Oximetry 95 Assessment/Plan (1) SAGE (acute kidney injury): Narrative Support Text: Improving. Continue current medications. Status: Acute (2) Unintentional weight loss: Narrative Support Text: Uncertain if it is psychogenic or organic in cause. She is currently drinking a smoothie for barium swallow study. Appreciate surgery recommendations. Status: Acute (3) Poor appetite: Narrative Support Text: May discharge on Periactin and/or Megace. Status: Acute (4) Essential (primary) hypertension: Narrative Support Text: Overall doing well. Was hypertensive overnight. Will continue to monitor. Resume home meds. Status: Chronic (5) Mixed hyperlipidemia: Narrative Support Text: Continue home dose of statin. Status: Chronic (6) GERD (gastroesophageal reflux disease): Qualifiers: Esophagitis presence: esophagitis presence not specified Qualified Code(s): K21.9 - Gastro-esophageal reflux disease without esophagitis Status: Acute
[2025-01-21 13:19] VITALS: BP 171/72; PULSE 70; TEMP 97.4; O2SAT 96
--- NOTE | 2025-01-21 14:47 | PCM.DCPLAN ---
DISCHARGE SUMMARY Admission Date Date of Admission: 01/20/25 Discharge Date Discharge Date: 01/21/25 Admission Diagnoses (1) Right kidney mass: Status: Acute (2) SAGE (acute kidney injury): Status: Acute (3) Unintentional weight loss: Status: Acute (4) Poor appetite: Status: Acute (5) Essential (primary) hypertension: Status: Chronic (6) Mixed hyperlipidemia: Status: Chronic (7) GERD (gastroesophageal reflux disease): Status: Acute Discharge Diagnoses Discharge Diagnosis: Same Discharge Medications Discharge Medications: Prescriptions: Hospital Course Vital Signs: Vital Signs Temperature 97.4 F Temperature 98.2 F Pulse Rate [Brachial] 70 Pulse Rate [Brachial] 81 Respiratory Rate 18 Respiratory Rate 18 Blood Pressure [Right Arm] 171/72 Blood Pressure [Right Arm] 144/65 O2 Sat by Pulse Oximetry 96 O2 Sat by Pulse Oximetry 94 Latest Lab Results: Laboratory Last Values WBC 5.7 X10^3/uL (3.6-10.0) 01/21/25 05:35 RBC 4.40 X10^6/uL (3.5-5.4) 01/21/25 05:35 Hgb 11.5 g/dL (12.0-16.0) L 01/21/25 05:35 Hct 35.3 % (36.0-47.0) L 01/21/25 05:35 MCV 80.3 fL (80.0-100.0) 01/21/25 05:35 MCH 26.2 pg (27.0-34.0) L 01/21/25 05:35 MCHC 32.7 g/dL (33.0-35.0) L 01/21/25 05:35 RDW 15.5 % (11.6-16.5) 01/21/25 05:35 Plt Count 181 X10^3/uL (150.0-450.0) 01/21/25 05:35 Plt Count Comment Adequate (ADEQUATE) 01/21/25 05:35 MPV 9.7 fL (7.4-11.0) 01/21/25 05:35 Neut % (Auto) 57.2 % (42.0-75.0) 01/21/25 05:35 Lymph % (Auto) 30.1 % (21.0-51.0) 01/21/25 05:35 [place] % (Auto) 9.4 % (0.0-13.0) 01/21/25 05:35 Eos % (Auto) 2.5 % (0.9-2.9) 01/21/25 05:35 Baso % (Auto) 0.8 % (0.2-1.0) 01/21/25 05:35 Neut # (Auto) 3.2 x10^3/uL (2.2-4.8) 01/21/25 05:35 Lymph # (Auto) 1.7 X10^3/uL (1.3-2.9) 01/21/25 05:35 [place] # (Auto) 0.5 x10^3/uL (0.3-0.8) 01/21/25 05:35 Eos # (Auto) 0.1 x10^3/uL (0.0-0.2) 01/21/25 05:35 Baso # (Auto) 0.0 X10^3/uL (0.0-0.1) 01/21/25 05:35 Absolute Nucleated RBC 0.2 /100WBC 01/21/25 05:35 Plt Morphology Comment Normal (NORMAL) 01/21/25 05:35 RBC Morphology Normal (NORMAL) 01/21/25 05:35 Sodium 134 mmol/L (136-145) L 01/21/25 04:48 Corrected Sodium TNP 01/21/25 04:48 Potassium 4.2 mmol/L (3.5-5.1) 01/21/25 04:48 Chloride 101 mmol/L (98-107) 01/21/25 04:48 Carbon Dioxide 26.3 mmol/L (21-32) 01/21/25 04:48 BUN 17 mg/dL (7-18) 01/21/25 04:48 Creatinine 1.22 mg/dL (0.55-1.02) H 01/21/25 04:48 Est GFR (MDRD) Af Amer 53 (>60) L 01/21/25 04:48 Est GFR (MDRD) Non-Af 44 (>60) L 01/21/25 04:48 Glucose 104 mg/dL (65-99) H 01/21/25 04:48 Calcium 9.1 mg/dL (8.5-10.1) 01/21/25 04:48 Corrected Calcium 10.1 mg/dL (8.5-10.1) 01/21/25 04:48 Magnesium 1.9 mg/dL (2.0-2.9) L 01/21/25 04:48 Total Bilirubin 0.50 mg/dL (0.2-1.0) 01/21/25 04:48 AST 17 Units/L (15-37) 01/21/25 04:48 ALT 10 Units/L (12-78) L 01/21/25 04:48 Alkaline Phosphatase 115 Units/L (46-116) 01/21/25 04:48 Troponin I High Sens 51.8 ng/L (4.0-60.0) 01/21/25 01:10 Total Protein 7.1 g/dL (6.4-8.2) 01/21/25 04:48 Albumin 2.7 g/dL (3.4-5.0) L 01/21/25 04:48 Globulin 4.4 g/dL (2.5-4.5) 01/21/25 04:48 Albumin/Globulin Ratio 0.6 Ratio (1.1-2.1) L 01/21/25 04:48 Hospital Course: Patient mated due to SAGE, unintentional weight loss, poor appetite, and worsening fatigue. Did slightly improve with hydration as far as her symptoms with good improvement of her labs. CT showed mass of her right kidney concerning for renal cell carcinoma. Patient elected for outpatient referral to Dr. Wilson. She has been discharged home in stable, improved condition for follow-up with her PCP and urology.
[2025-01-21] MEDS ORDERED: PATIENT'S HOME MEDICATION PO SCH (21:00)
[2025-01-22] MEDS ORDERED: PATIENT'S HOME MEDICATION PO SCH ×3 (09:00)
== END 2025-01-21 15:35 | disposition home or self-care (01) ==
LOC: MED/SURG
PROVIDERS: ADMIT Family Medicine; ATTEND Family Medicine
DX: N17.8 Other acute kidney failure; R63.0 Anorexia; Z68.26 Body mass index [BMI] 26.0-26.9, adult; K21.9 Gastro-esophageal reflux disease without esophagitis; I10 Essential (primary) hypertension; R10.84 Generalized abdominal pain; E78.2 Mixed hyperlipidemia; R11.2 Nausea with vomiting, unspecified; N28.89 Other specified disorders of kidney and ureter; E87.1 Hypo-osmolality and hyponatremia; R29.6 Repeated falls; R26.89 Other abnormalities of gait and mobility; R73.09 Other abnormal glucose; R63.4 Abnormal weight loss; R53.1 Weakness

== ENCOUNTER 2025-04-03 10:13 | Inpatient (IN) ==
[2025-04-03] MEDS ORDERED: TYLENOL 500 MG TAB EXTRA STRENGTH PO PRN (13:52)
[2025-04-03] MEDS ORDERED: NORCO 5/325 MG TAB PO PRN (13:52)
[2025-04-03] MEDS ORDERED: BENADRYL CAP 50 MG PO PRN (13:52)
[2025-04-03] MEDS ORDERED: ZOFRAN ODT PO PRN (14:11)
[2025-04-03] MEDS ORDERED: PROTONIX INJ 40 MG VIAL IVP ONE (14:11)
[2025-04-03] MEDS ORDERED: PHENERGAN SYRUP PLAIN 6.25MG/5ML PO PRN (14:16)
[2025-04-03] MEDS: COLACE CAP 100 MG PO SCH (20:50)
[2025-04-03] MEDS: ZOCOR TAB 10 MG PO SCH (20:51)
[2025-04-04] MEDS: SYNTHROID 50 mcg TAB PO SCH (06:11)
[2025-04-04] MEDS ORDERED: CLARITIN ONE (07:44)
[2025-04-04] MEDS ORDERED: NORVASC TAB 5 MG ONE (07:45)
[2025-04-04] MEDS ORDERED: FLONASE NASAL SPRAY ENOSTRIL ONE (07:45)
[2025-04-04] MEDS ORDERED: PROTONIX TAB 40 MG PO ONE (07:45)
[2025-04-04] MEDS ORDERED: SINGULAIR TAB 10 MG ONE (07:45)
[2025-04-04] MEDS: SINGULAIR TAB 10 MG PO SCH (09:25)
[2025-04-04] MEDS: PROTONIX TAB 40 MG PO ONE (09:25)
[2025-04-04] MEDS: CLARITIN PO SCH (09:25)
[2025-04-04] MEDS: NORVASC TAB 5 MG PO SCH (09:25)
[2025-04-04] MEDS: FLONASE NASAL SPRAY ENOSTRIL SCH (09:26)
[2025-04-04 10:54] VITALS: BMI 25.0
--- NOTE | 2025-04-04 16:55 | DR.H&P ---
H&P History & Physical for Day of: H&P Date: 04/04/25 Chief Complaint Chief Complaint: rehab History of Present Illness History of Present Illness: Patient presented this facility for subacute rehab following right nephrectomy due to renal cancer. Was diagnosed at this facility and discharged for urgent follow-up with urology. Referred to [facility] where she underwent surgery last week. She has done well in the postop period and sent here for wound care and rehab. She does have multiple ximena across the right flank. She is ambulating well. She is able to move about the bed without difficulty. Pain is well-controlled. She arrived yesterday. ROS: 12 point ROS negative except as noted in HPI. PE: Elderly female in no acute distress. Head NCAT, hearing grossly normal, EOMI. Heart regular rate and rhythm with lungs clear and strong speech. Bowel sounds are present with a large healing incision of the right flank with no erythema or discharge. Able to move all extremities well with appropriate strength for age. Mood and affect are appropriate. Past Medical History Past Medical History: Dyslipidemia, GERD, Gout, Hypertension and Cancer Past Surgical History Surgical History: Hysterectomy, Ortho Surgery, Tonsillectomy and Other Family History Family Medical History: Coronary Artery Disease Medications Home Medications: Home Medications Medication Instructions Recorded Confirmed Type amlodipine 5 mg tablet 5 mg PO BID 02/06/24 5 History levothyroxine 50 mcg tablet 50 mcg PO QDAY 02/06/24 History pantoprazole 40 mg tablet,delayed 40 mg PO QDAY 04/03/25 History release zolpidem 10 mg tablet 10 mg PO QPM PRN 02/06/24 History atorvastatin 10 mg tablet 10 mg PO HS 09/08/24 5 History ergocalciferol (vitamin D2) 1,250 1,250 mcg PO WEEKLY 04/03/25 04/03/25 History mcg (50,000 unit) capsule (Vitamin D2) Allergies Allergies Allergy/AdvReac Type Severity Reaction Status Date / Time amoxicillin Allergy Verified 03/15/25 08:25 nystatin Allergy Verified 03/15/25 08:25 Physical Exam Vital Signs: Vital Signs Temperature 98.7 F Temperature 98.7 F Pulse Rate [Right Brachial] 70 Pulse Rate [Right Brachial] 70 Respiratory Rate 17 Respiratory Rate 17 Blood Pressure [Right Arm] 151/68 Blood Pressure [Right Arm] 151/68 O2 Sat by Pulse Oximetry 97 O2 Sat by Pulse Oximetry 97 Assessment/Plan (1) Right kidney mass: Narrative Support Text: Status post right nephrectomy Status: Acute (2) Poor appetite: Narrative Support Text: May need appetite stimulant. Regular diet for now. Status: Acute (3) Mixed hyperlipidemia: Status: Chronic (4) Essential (primary) hypertension: Narrative Support Text: Adjust as needed. Status: Chronic (5) Muscular deconditioning: Narrative Support Text: [facility] with PT and OT. Status: Acute (6) H/O right nephrectomy: Status: Acute
--- NOTE | 2025-04-04 19:48 | PT/OTEVAL ---
PT/OT OBJECTIVES - HISTORY Prescription: PT Consult Diagnosis: s/p R Nephrectomy Precautions: Fall Risk, Surgical Incision PMH: R Renal Mass (Malignancy) s/p Radical Nephrectomy, SAGE, Hyperkalemia, HTN, HLD, Anemia, GERD, Hypothyroidism, Arthritis, Gout, Anxiety, Hx UTI, Urinary Incontinence, Vertigo, Cataracts, L TKR, Hysterectomy, L Wrist Cyst Removal x 2, Cholecystectomy, Tonsillectomy, Sinus Surgery, Cataract Extraction with Lens Replacement Prior Level of Function: Independent Other: Per patient report- she resides at home alone in single story home with 1 step to enter and handle to get up. PLOF: Independent within home without a device; however, pt reports using SPC outdoors and having family with her when out of home. Pt has a very supportive family including: sister, brother, 2 sons, nephew and niece. DME: FWW, SPC, BSC, SC, WC History of Present Illness: Ms. Fiore is an 89 year old female who was admitted to [facility] in [place] to undergo a Right Radical Nephrectomy on 03/31/2025 due to R renal mass. Pt unable to safely return home alone when medically stabilized and was transferred to [facility] Swing Bed program on the afternoon of 04/03/2025. - COGNITION Mental Status: Alert, Oriented, Name, Date, Place, Purpose Communication Status: Verbal Ability to Follow Directions: 2 Step Affect: Calm - PAIN Lower Right Abdomen/Surgical Incision Pain Scale: Discomfort Comments: "It's really not bad right now" - BED MOBILITY Rolling: Supervision - TRANSFERS Supine to Sit: Supervision, Minimal Supine Comment: Touch assist- use of bed rail. Sit to Stand: Supervision, Minimal Sit to Stand Comment: Touch assist Sit or Stand Pivot: Supervision, Minimal Sit or Stand Pivot Comment: Touch assist - BALANCE Static Sitting: Good Standing: Fair Balance Comment: Fair- Dynamic Sitting: Good Standing: Poor Balance Comment: Poor+ - NEUROMOTOR/SENSATION Anthony. Lower Ext Sensation: WFL Coordination: WFL Proprioception: WFL - ROM Bilateral LE Muscle Tone: WFL - STRENGTH Bilateral LE Strength Number: 3 Other comment: 3+/5 - GAIT Pt. ambulates how many feet?: 100 Amount of Assistance Required: Minimal Type of Assistive Device: Rolling Walker Comments: Touch assist, easily fatigues. - TREATMENT Date: 04/04/25 Time: 17:00 Treatment Type: Evaluation Treatment Provided: Gait, Therapeutic Activities - TOTAL TREATMENT TIME Total Time: 60 - POST ASSESSMENT Post Assessment Comment: Pt was found in room and agreeable to participation in PT services. Pt was able to provide history and PLOF information. Pt reports slight discomfort to R lower abdominal region where her incision is. Pt able to demonstrate ability to perform all functional mobility tasks with touch assist- cues for proper hand placement and technique. Pt performed transfers from recliner chair, commode and EOB. Pt able to perform own hygiene tasks for toileting for touch assist. Pt ambulated with FWW and touch assist for 15ft x 2 in bathroom and then for 100ft x 2 in hallway- focus on deep breathing techniques, upright posture and maintaining proper walker approximation. Pt education on energy conservation techniques. Pt agreeable to return to recliner following session. Left with all needs met. Discussed goals and discharge plans with pt. Pt would benefit from continued PT services to address her deficits and facilitate highest level of function and safe discharge planning back to home environment. - EXIT DISPOSITION Exit Position: CHAIR Call light in reach: Yes Comments: All needs met PT/OT ASSESSMENT - PT Problem List: Decreased Bed Mobility, Decreased Transfers, Decreased Gait, Decreased Balance, Decreased LE Strength - PT GOALS Short Term Goals Days: 10 Mobility: Pt will perform bed mobility tasks with mod I Transfers: Pt will perform functional transfers with mod I Gait: Pt will ambulate 300ft with FWW and supervision Balance: Pt will increase static standing balance to good Fpc Goals Days: 20 Gait: Pt will ambulate 500ft with LRAD and mod I Balance: Pt will increase dynamic standing balance to fair+/good- ROM/Strength: Pt will increase BLE strength to 5/5 Others: Pt will ascend/descend 1 step with UE assist and mod I - PATIENT GOALS Patient/Family Goals: "I want to get my strength back so I can get back home" Goals Discussed with Patient/Family: Yes Rehabilitation Potential: Good to meet stated goals Justification for Potential: Facilitate highest level of function and safe discharge planning Weakness and Barriers: None - PLAN Suggested Treatment Plan: Bed Mobility Training, Therapeutic Activity, Gait Training, Neuro Re-education, Therapeutic Ex with HEP, Patient Education, Family Education - FREQUENCY AND DURATION PT: 5x per week x 20 days Expected Continuation of Care at Discharge: Home Health
[2025-04-05] MEDS: MILK OF MAGNESIA PO PRN (20:19)
[2025-04-06 05:56] LABS: BASOPHILS % (AUTO) 0.3 % (0.2-1.0); EOSINOPHILS # (AUTO) 0.1 x10^3/uL (0.0-0.2); EOSINOPHILS % (AUTO) 3.3 % (0.9-2.9); HEMATOCRIT 26.2 % (36.0-47.0); HEMOGLOBIN 8.6 g/dL (12.0-16.0); LYMPHOCYTES # (AUTO) 1.9 X10^3/uL (1.3-2.9); LYMPHOCYTES % (AUTO) 41.5 % (21.0-51.0); MEAN CORPUSCULAR HEMOGLOBIN 25.3 pg (27.0-34.0); MEAN CORPUSCULAR HGB CONC 32.9 g/dL (33.0-35.0); MEAN CORPUSCULAR VOLUME 76.9 fL (80.0-100.0); MEAN PLATELET VOLUME 7.9 fL (7.4-11.0); MONOCYTES # (AUTO) 0.5 x10^3/uL (0.3-0.8); MONOCYTES % (AUTO) 10.7 % (0.0-13.0); NEUTROPHILS % (AUTO) 44.2 % (42.0-75.0); PLATELET COUNT 235 X10^3/uL (150.0-450.0); RED BLOOD COUNT 3.41 X10^6/uL (3.5-5.4); RED CELL DISTRIBUTION WIDTH 15.6 % (11.6-16.5); WHITE BLOOD COUNT 4.5 X10^3/uL (3.6-10.0)
[2025-04-06 06:05] LABS: ALANINE AMINOTRANSFERASE 14 Units/L (12-78); ALBUMIN 2.1 g/dL (3.4-5.0); ALKALINE PHOSPHATASE 88 Units/L (46-116); ASPARTATE AMINO TRANSFERASE 16 Units/L (15-37); BLOOD UREA NITROGEN 23 mg/dL (7-18); CALCIUM 9.2 mg/dL (8.5-10.1); CARBON DIOXIDE 31.1 mmol/L (21-32); CHLORIDE 107 mmol/L (98-107); COR CA(FOR HYPOALB) 10.7 mg/dL (8.5-10.1); CREATININE 1.61 mg/dL (0.55-1.02); GLUCOSE 105 mg/dL (65-99); SODIUM 142 mmol/L (136-145); TOTAL PROTEIN 5.9 g/dL (6.4-8.2); eGFR NON BLACK RACES 32 (>60)
[2025-04-06 06:06] LABS: POTASSIUM 5.5 mmol/L (3.5-5.1)
--- NOTE | 2025-04-06 09:05 | PCM.PROG ---
Progress Note Progress Note for Day of Date of Exam: 04/06/25 Subjective Subjective: Patient seen at bedside. No acute events overnight. She is currently admitted to a swing bed for physical therapy. She has been doing well. She still has the ximena from her right nephrectomy. Patient will let us know when her follow-up with urology is. Labs/imaging reviewed: - WBC 4.5 hemoglobin 8.6 potassium 5.5 creatinine 1.61 Plan: Continue physical therapy as tolerated. Will check on urology follow-up. Continue home medications. Add Kayexalate. Repeat labs as needed. Fall precautions. Replace electrolytes as per protocol. Past Medical Family Social History Allergies: Allergies amoxicillin Allergy (Verified 03/15/25 08:25) nystatin Allergy (Verified 03/15/25 08:25) Vital Signs and I&O's Vital Signs: Vital Signs Temperature 97.4 F Pulse Rate [Right Brachial] 72 Respiratory Rate 19 Blood Pressure [Right Arm] 159/78 O2 Sat by Pulse Oximetry 96 Intake and Output: Intake & Output 04/03/25 04/04/25 04/05/25 04/06/25 23:59 23:59 23:59 23:59 Intake Total 0 / 0 1380 / 1380 1870 / 1870 0 / 0 Balance 0 / 0 1380 / 1380 1870 / 1870 0 / 0 Physical Exam Oriented: Normal Respiratory: Normal Cardiovascular: Normal Auscultation: Bowel Sounds: Normal Palpation: Normal Tenderness: Normal Skin: Normal Musculoskeletal: Normal Psychiatric: Normal Mood Description: Calm Affect: Normal Speech Pattern: Clear Laboratory and Diagnostics 04/06/25 05:12 04/06/25 05:12 Labs: Laboratory WBC 4.5 X10^3/uL (3.6-10.0) 04/06/25 05:12 RBC 3.41 X10^6/uL (3.5-5.4) L 04/06/25 05:12 Hgb 8.6 g/dL (12.0-16.0) L 04/06/25 05:12 Hct 26.2 % (36.0-47.0) L 04/06/25 05:12 MCV 76.9 fL (80.0-100.0) L 04/06/25 05:12 MCH 25.3 pg (27.0-34.0) L 04/06/25 05:12 MCHC 32.9 g/dL (33.0-35.0) L 04/06/25 05:12 RDW 15.6 % (11.6-16.5) 04/06/25 05:12 Plt Count 235 X10^3/uL (150.0-450.0) 04/06/25 05:12 MPV 7.9 fL (7.4-11.0) 04/06/25 05:12 Neut % (Auto) 44.2 % (42.0-75.0) 04/06/25 05:12 Lymph % (Auto) 41.5 % (21.0-51.0) 04/06/25 05:12 [place] % (Auto) 10.7 % (0.0-13.0) 04/06/25 05:12 Eos % (Auto) 3.3 % (0.9-2.9) H 04/06/25 05:12 Baso % (Auto) 0.3 % (0.2-1.0) 04/06/25 05:12 Neut # (Auto) 2.0 x10^3/uL (2.2-4.8) L 04/06/25 05:12 Lymph # (Auto) 1.9 X10^3/uL (1.3-2.9) 04/06/25 05:12 [place] # (Auto) 0.5 x10^3/uL (0.3-0.8) 04/06/25 05:12 Eos # (Auto) 0.1 x10^3/uL (0.0-0.2) 04/06/25 05:12 Baso # (Auto) 0.0 X10^3/uL (0.0-0.1) 04/06/25 05:12 Absolute Nucleated RBC 0.6 /100WBC 04/06/25 05:12 Sodium 142 mmol/L (136-145) 04/06/25 05:12 Corrected Sodium TNP 04/06/25 05:12 Potassium 5.5 mmol/L (3.5-5.1) H 04/06/25 05:12 Chloride 107 mmol/L (98-107) 04/06/25 05:12 Carbon Dioxide 31.1 mmol/L (21-32) 04/06/25 05:12 BUN 23 mg/dL (7-18) H 04/06/25 05:12 Creatinine 1.61 mg/dL (0.55-1.02) H 04/06/25 05:12 Est GFR (MDRD) Af Amer 39 (>60) L 04/06/25 05:12 Est GFR (MDRD) Non-Af 32 (>60) L 04/06/25 05:12 Glucose 105 mg/dL (65-99) H 04/06/25 05:12 Calcium 9.2 mg/dL (8.5-10.1) 04/06/25 05:12 Corrected Calcium 10.7 mg/dL (8.5-10.1) H 04/06/25 05:12 Total Bilirubin 0.20 mg/dL (0.2-1.0) 04/06/25 05:12 AST 16 Units/L (15-37) 04/06/25 05:12 ALT 14 Units/L (12-78) 04/06/25 05:12 Alkaline Phosphatase 88 Units/L (46-116) 04/06/25 05:12 Total Protein 5.9 g/dL (6.4-8.2) L 04/06/25 05:12 Albumin 2.1 g/dL (3.4-5.0) L 04/06/25 05:12 Globulin 3.8 g/dL (2.5-4.5) 04/06/25 05:12 Albumin/Globulin Ratio 0.6 Ratio (1.1-2.1) L 04/06/25 05:12 Plan (1) Muscular deconditioning: Status: Acute (2) Right kidney mass: Status: Acute (3) Poor appetite: Status: Acute (4) Mixed hyperlipidemia: Status: Chronic (5) Essential (primary) hypertension: Status: Chronic (6) H/O right nephrectomy: Status: Acute
[2025-04-06] MEDS: KAYEXALATE SUSP PO NR (09:10)
[2025-04-07 07:18] LABS: CARBON DIOXIDE 31.4 mmol/L (21-32); CREATININE 1.57 mg/dL (0.55-1.02); POTASSIUM 5.1 mmol/L (3.5-5.1)
--- NOTE | 2025-04-07 13:38 | PT/OTEVAL ---
PT/OT OBJECTIVES - HISTORY Prescription: OT Consult Diagnosis: Right Nephrectomy Precautions: Fall risk. PMH: Kidney disease, hypothyroidism, arthritis, skin cancer, gout, anxiety, vertigo, hyperlipidemia, hypertension, urinary incontinence, GERD, UTI, Kidney malignancy Prior Level of Function: Independent Other: Prior to hospital stay, pt lived alone in a 1 story home and was (I) with ADLs. She does not have stairs that lead to the main entrance of the home. Pt uses walker, cane, shower chair, and potty chair at home. Pt states that she is having some constipation pain today. History of Present Illness: Pt is an 89 year old female who is seen in swingbed program post right renal nephrectomy on 03/31/2025 for renal mass meauring 6.5cm. Once pt was medically stabilized she came to this hospital for further rehab services on the swing bed program. - COGNITION Mental Status: Alert, Oriented, Name, Place, Purpose Communication Status: Verbal Ability to Follow Directions: 3 Step Memory Loss: None Affect: Calm - PAIN No signs of pain Pain Scale: No Pain Left Knee Pain Scale: No Pain Lower Right Abdomen/Surgical Incision Pain Scale: Discomfort Comments: Pt stated that she was having some pain due to constipation - BED MOBILITY Rolling: Supervision Scooting: Supervision - TRANSFERS Supine to Sit: Supervision Sit to Stand: Supervision - ADL'S Upper Body ADL: Minimum Lower Body ADL: Declined to participate, will assess next visit - BALANCE Static Sitting: Good Standing: Good Dynamic Sitting: Fair Standing: Good Balance Comment: Fair+ with UE support - NEUROMOTOR/SENSATION Anthony. Upper Ext Sensation: WFL Coordination: WFL - ROM Bilateral UE ROM: WFL - STRENGTH Bilateral UE Strength Number: 4 Other comment: / on BUE - GAIT Pt. ambulates how many feet?: 200 Amount of Assistance Required: Supervision Type of Assistive Device: Rolling Walker Comments: With seated RB - TREATMENT Date: 04/07/25 Time: 11:00 Treatment Type: Evaluation Treatment Provided: Therapeutic Excersises - TOTAL TREATMENT TIME Total Time: 45 - POST ASSESSMENT Post Assessment Comment: Pt seen for swingbed OT eval to assess CLOF. Pt was able to provide PLOF, and hx and agreeable to participate with skilled OT. Pt co mpletes bed mobility with Dulce. At this time, pt demonstrates G s/d sitting balance and G-/F+ s/d standing balance. Pt t/f EOB to standing at walker and donned gown as a jacket with Kristyn. Pt demonstrates good ROM and 4-/5 BUE strength. Used level 3 theraband for tricep and bicep press x15 BUE. Pt able to complete sit to stand t/f x6 for 2 sets with a rest break in between. Pt would benefit from skilled OT services to address increased (I) with home maintence skills and ADLs to return to her prior living condition. Pt seated in recliner with call light within reach and needs met. - EXIT DISPOSITION Exit Position: CHAIR Call light in reach: Yes PT/OT ASSESSMENT - OT Problem List: Decreased Mobility ADL's, Decreased Dressing, Decreased Bathing, Decreased UE Strength - PT GOALS Short Term Goals Days: 10 Mobility: Pt will perform bed mobility tasks with mod I Transfers: Pt will perform functional transfers with mod I Gait: Pt will ambulate 300ft with FWW and supervision Balance: Pt will increase static standing balance to good Chcf Goals Days: 20 Gait: Pt will ambulate 500ft with LRAD and mod I Balance: Pt will increase dynamic standing balance to fair+/good- ROM/Strength: Pt will increase BLE strength to 5/5 Others: Pt will ascend/descend 1 step with UE assist and mod I - OT GOALS Chcf Goals Days: 20 Mobility for ADL's: Pt will improve s/d standing balance to G/G Dressing: Pt will complete UB dressing (I) Bathing: Pt will complete all bathing tasks (I) Upper Ext. Strength/Use: Pt will increase BUE MMT to 5/5 Other: Pt will improve F.A.T. to G. Short Term Goals Days: 10 Mobility for ADL's: Pt will improve functional transfers to mod(I) Dressing: Pt will complete LB dressing (I) with AE PRN Bathing: Pt will bathe UB with Kristyn Other: Pt will complete simple homemaking tasks with (I) - PATIENT GOALS Patient/Family Goals: Pt would like to return to her home. Goals Discussed with Patient/Family: Yes Rehabilitation Potential: Good rehab potential for stated goals Justification for Potential: Skilled OT to increase (I) with ADL/IADLs for returning home Weakness and Barriers: None - PLAN Suggested Treatment Plan: Therapeutic Activity, Self Care Training, Neuro Re- education, Therapeutic Ex with HEP, Home Management, Patient Education - FREQUENCY AND DURATION OT: 5x/week [email or web address] Expected Continuation of Care at Discharge: Home, Home Health
[2025-04-08 06:05] LABS: BASOPHILS % (AUTO) 0.4 % (0.2-1.0); EOSINOPHILS # (AUTO) 0.2 x10^3/uL (0.0-0.2); EOSINOPHILS % (AUTO) 4.3 % (0.9-2.9); HEMATOCRIT 25.8 % (36.0-47.0); HEMOGLOBIN 8.5 g/dL (12.0-16.0); LYMPHOCYTES # (AUTO) 1.6 X10^3/uL (1.3-2.9); LYMPHOCYTES % (AUTO) 38.5 % (21.0-51.0); MEAN CORPUSCULAR HEMOGLOBIN 25.4 pg (27.0-34.0); MEAN PLATELET VOLUME 7.9 fL (7.4-11.0); MONOCYTES # (AUTO) 0.5 x10^3/uL (0.3-0.8); MONOCYTES % (AUTO) 11.1 % (0.0-13.0); NEUTROPHILS # (AUTO) 1.9 x10^3/uL (2.2-4.8); NEUTROPHILS % (AUTO) 45.7 % (42.0-75.0); PLATELET COUNT 243 X10^3/uL (150.0-450.0); RED BLOOD COUNT 3.35 X10^6/uL (3.5-5.4); RED CELL DISTRIBUTION WIDTH 15.4 % (11.6-16.5); WHITE BLOOD COUNT 4.2 X10^3/uL (3.6-10.0)
[2025-04-08 06:23] LABS: ALANINE AMINOTRANSFERASE 14 Units/L (12-78); ALBUMIN 2.3 g/dL (3.4-5.0); ALKALINE PHOSPHATASE 86 Units/L (46-116); ASPARTATE AMINO TRANSFERASE 20 Units/L (15-37); BLOOD UREA NITROGEN 20 mg/dL (7-18); CALCIUM 8.9 mg/dL (8.5-10.1); CARBON DIOXIDE 31.2 mmol/L (21-32); CHLORIDE 107 mmol/L (98-107); COR CA(FOR HYPOALB) 10.3 mg/dL (8.5-10.1); CREATININE 1.48 mg/dL (0.55-1.02); GLUCOSE 100 mg/dL (65-99); POTASSIUM 4.6 mmol/L (3.5-5.1); SODIUM 143 mmol/L (136-145); TOTAL PROTEIN 6.8 g/dL (6.4-8.2); eGFR NON BLACK RACES 35 (>60)
[2025-04-08 06:47] LABS: BAND NEUTROPHILS % 1 % (0-10); PLATELET MORPHOLOGY COMMENT NORMAL (NORMAL)
--- NOTE | 2025-04-08 10:19 | PCM.PROG ---
Progress Note Progress Note for Day of Date of Exam: 04/08/25 Subjective Subjective: Patient seen at bedside. No acute events overnight. She is currently admitted to a swing bed for physical therapy. She has been doing well. She has been ambulating and doing exercises on her own. She still has the ximena from her right nephrectomy. She still remains constipated, has been getting colace daily and milk of Mag. Patient is suppose to f/u with Urology in [place] but does not have an appointment. Labs/imaging reviewed: - WBC 4.2 hemoglobin 8.8 potassium 4.6 creatinine 1.48 Plan: Continue physical therapy as tolerated. Will check on urology follow-up. Continue colace, schedule Milk of Mag. Add [place] prn. Encourage hydration. Continue home medications. Repeat labs as needed. Fall precautions. Replace electrolytes as per protocol. Past Medical Family Social History Allergies: Allergies amoxicillin Allergy (Verified 03/15/25 08:25) nystatin Allergy (Verified 03/15/25 08:25) Vital Signs and I&O's Intake and Output: Intake & Output 04/05/25 04/06/25 04/07/25 04/08/25 23:59 23:59 23:59 23:59 Intake Total 1870 / 1870 720 / 720 1160 / 1160 150 / 150 Balance 1870 / 1870 720 / 720 1160 / 1160 150 / 150 Physical Exam Oriented: Normal Respiratory: Normal Cardiovascular: Normal Auscultation: Bowel Sounds: Normal Palpation: Normal Tenderness: Normal Skin: Normal Musculoskeletal: Normal Psychiatric: Normal Mood Description: Calm Affect: Normal Speech Pattern: Clear Laboratory and Diagnostics 04/08/25 05:17 04/08/25 05:17 Labs: Laboratory WBC 4.2 X10^3/uL (3.6-10.0) 04/08/25 05:17 RBC 3.35 X10^6/uL (3.5-5.4) L 04/08/25 05:17 Hgb 8.5 g/dL (12.0-16.0) L 04/08/25 05:17 Hct 25.8 % (36.0-47.0) L 04/08/25 05:17 MCV 77.0 fL (80.0-100.0) L 04/08/25 05:17 MCH 25.4 pg (27.0-34.0) L 04/08/25 05:17 MCHC 33.0 g/dL (33.0-35.0) 04/08/25 05:17 RDW 15.4 % (11.6-16.5) 04/08/25 05:17 Plt Count 243 X10^3/uL (150.0-450.0) 04/08/25 05:17 Plt Count Comment Adequate (ADEQUATE) 04/08/25 05:17 MPV 7.9 fL (7.4-11.0) 04/08/25 05:17 Neut % (Auto) 45.7 % (42.0-75.0) 04/08/25 05:17 Lymph % (Auto) 38.5 % (21.0-51.0) 04/08/25 05:17 [place] % (Auto) 11.1 % (0.0-13.0) 04/08/25 05:17 Eos % (Auto) 4.3 % (0.9-2.9) H 04/08/25 05:17 Baso % (Auto) 0.4 % (0.2-1.0) 04/08/25 05:17 Neut # (Auto) 1.9 x10^3/uL (2.2-4.8) L 04/08/25 05:17 Lymph # (Auto) 1.6 X10^3/uL (1.3-2.9) 04/08/25 05:17 [place] # (Auto) 0.5 x10^3/uL (0.3-0.8) 04/08/25 05:17 Eos # (Auto) 0.2 x10^3/uL (0.0-0.2) 04/08/25 05:17 Baso # (Auto) 0.0 X10^3/uL (0.0-0.1) 04/08/25 05:17 Absolute Nucleated RBC 0.1 /100WBC 04/08/25 05:17 Total Counted 100 04/08/25 05:17 Neutrophils % (Manual) 54 % (39-76) 04/08/25 05:17 Band Neutrophils % 1 % (0-10) 04/08/25 05:17 Lymphocytes % (Manual) 41 % (13-43) 04/08/25 05:17 Monocytes % (Manual) 4 % (4-9) 04/08/25 05:17 Plt Morphology Comment Normal (NORMAL) 04/08/25 05:17 RBC Morphology Normal (NORMAL) 04/08/25 05:17 Sodium 143 mmol/L (136-145) 04/08/25 05:17 Corrected Sodium TNP 04/08/25 05:17 Potassium 4.6 mmol/L (3.5-5.1) 04/08/25 05:17 Chloride 107 mmol/L (98-107) 04/08/25 05:17 Carbon Dioxide 31.2 mmol/L (21-32) 04/08/25 05:17 BUN 20 mg/dL (7-18) H 04/08/25 05:17 Creatinine 1.48 mg/dL (0.55-1.02) H 04/08/25 05:17 Est GFR (MDRD) Af Amer 43 (>60) L 04/08/25 05:17 Est GFR (MDRD) Non-Af 35 (>60) L 04/08/25 05:17 Glucose 100 mg/dL (65-99) H 04/08/25 05:17 Calcium 8.9 mg/dL (8.5-10.1) 04/08/25 05:17 Corrected Calcium 10.3 mg/dL (8.5-10.1) H 04/08/25 05:17 Total Bilirubin 0.20 mg/dL (0.2-1.0) 04/08/25 05:17 AST 20 Units/L (15-37) 04/08/25 05:17 ALT 14 Units/L (12-78) 04/08/25 05:17 Alkaline Phosphatase 86 Units/L (46-116) 04/08/25 05:17 Total Protein 6.8 g/dL (6.4-8.2) 04/08/25 05:17 Albumin 2.3 g/dL (3.4-5.0) L 04/08/25 05:17 Globulin 4.5 g/dL (2.5-4.5) 04/08/25 05:17 Albumin/Globulin Ratio 0.5 Ratio (1.1-2.1) L 04/08/25 05:17 Plan (1) Muscular deconditioning: Status: Acute (2) Right kidney mass: Status: Acute (3) Poor appetite: Status: Acute (4) Mixed hyperlipidemia: Status: Chronic (5) Essential (primary) hypertension: Status: Chronic (6) H/O right nephrectomy: Status: Acute (7) Constipation: Status: Acute
[2025-04-08] MEDS: MILK OF MAGNESIA PO SCH (11:23)
[2025-04-08] MEDS: SENOKOT PO PRN (12:11)
[2025-04-08] MEDS: LUBIFRESH PM EYE OINTMENT AFFEYE PRN (17:18)
[2025-04-10 06:11] LABS: BASOPHILS % (AUTO) 0.5 % (0.2-1.0); EOSINOPHILS # (AUTO) 0.2 x10^3/uL (0.0-0.2); EOSINOPHILS % (AUTO) 3.6 % (0.9-2.9); HEMATOCRIT 27.4 % (36.0-47.0); HEMOGLOBIN 8.9 g/dL (12.0-16.0); LYMPHOCYTES # (AUTO) 1.7 X10^3/uL (1.3-2.9); LYMPHOCYTES % (AUTO) 38.7 % (21.0-51.0); MEAN CORPUSCULAR HEMOGLOBIN 25.5 pg (27.0-34.0); MEAN CORPUSCULAR HGB CONC 32.5 g/dL (33.0-35.0); MEAN CORPUSCULAR VOLUME 78.3 fL (80.0-100.0); MEAN PLATELET VOLUME 8.1 fL (7.4-11.0); MONOCYTES # (AUTO) 0.5 x10^3/uL (0.3-0.8); MONOCYTES % (AUTO) 11.5 % (0.0-13.0); NEUTROPHILS % (AUTO) 45.7 % (42.0-75.0); PLATELET COUNT 216 X10^3/uL (150.0-450.0); RED BLOOD COUNT 3.49 X10^6/uL (3.5-5.4); RED CELL DISTRIBUTION WIDTH 16.2 % (11.6-16.5); WHITE BLOOD COUNT 4.5 X10^3/uL (3.6-10.0)
[2025-04-10 06:18] LABS: ALANINE AMINOTRANSFERASE 19 Units/L (12-78); ALBUMIN 2.6 g/dL (3.4-5.0); ALKALINE PHOSPHATASE 87 Units/L (46-116); ASPARTATE AMINO TRANSFERASE 22 Units/L (15-37); BLOOD UREA NITROGEN 22 mg/dL (7-18); CALCIUM 9.6 mg/dL (8.5-10.1); CARBON DIOXIDE 34.3 mmol/L (21-32); CHLORIDE 107 mmol/L (98-107); COR CA(FOR HYPOALB) 10.7 mg/dL (8.5-10.1); CREATININE 1.55 mg/dL (0.55-1.02); GLUCOSE 102 mg/dL (65-99); POTASSIUM 5.3 mmol/L (3.5-5.1); SODIUM 143 mmol/L (136-145); eGFR NON BLACK RACES 34 (>60)
[2025-04-10 06:59] LABS: MICROCYTOSIS SLIGHT; PLATELET MORPHOLOGY COMMENT NORMAL (NORMAL)
[2025-04-10 07:00] LABS: HYPOCHROMASIA SLIGHT
[2025-04-10] MEDS: MAALOX or MYLANTA PO PRN (19:38)
[2025-04-13 06:07] LABS: BASOPHILS % (AUTO) 0.5 % (0.2-1.0); EOSINOPHILS # (AUTO) 0.1 x10^3/uL (0.0-0.2); EOSINOPHILS % (AUTO) 2.5 % (0.9-2.9); HEMATOCRIT 28.2 % (36.0-47.0); HEMOGLOBIN 9.1 g/dL (12.0-16.0); LYMPHOCYTES # (AUTO) 1.5 X10^3/uL (1.3-2.9); LYMPHOCYTES % (AUTO) 27.7 % (21.0-51.0); MEAN CORPUSCULAR HEMOGLOBIN 25.3 pg (27.0-34.0); MEAN CORPUSCULAR HGB CONC 32.4 g/dL (33.0-35.0); MEAN CORPUSCULAR VOLUME 78.2 fL (80.0-100.0); MEAN PLATELET VOLUME 8.4 fL (7.4-11.0); MONOCYTES # (AUTO) 0.5 x10^3/uL (0.3-0.8); MONOCYTES % (AUTO) 9.1 % (0.0-13.0); NEUTROPHILS # (AUTO) 3.3 x10^3/uL (2.2-4.8); NEUTROPHILS % (AUTO) 60.2 % (42.0-75.0); PLATELET COUNT 188 X10^3/uL (150.0-450.0); RED BLOOD COUNT 3.61 X10^6/uL (3.5-5.4); RED CELL DISTRIBUTION WIDTH 16.8 % (11.6-16.5); WHITE BLOOD COUNT 5.5 X10^3/uL (3.6-10.0)
[2025-04-13 06:12] LABS: ALANINE AMINOTRANSFERASE 17 Units/L (12-78); ALBUMIN 2.8 g/dL (3.4-5.0); ALKALINE PHOSPHATASE 85 Units/L (46-116); ASPARTATE AMINO TRANSFERASE 14 Units/L (15-37); BLOOD UREA NITROGEN 23 mg/dL (7-18); CALCIUM 9.4 mg/dL (8.5-10.1); CARBON DIOXIDE 31.3 mmol/L (21-32); CHLORIDE 104 mmol/L (98-107); COR CA(FOR HYPOALB) 10.4 mg/dL (8.5-10.1); CREATININE 1.49 mg/dL (0.55-1.02); GLUCOSE 108 mg/dL (65-99); SODIUM 140 mmol/L (136-145); TOTAL PROTEIN 7.2 g/dL (6.4-8.2); eGFR NON BLACK RACES 35 (>60)
[2025-04-13 06:19] LABS: POTASSIUM 5.8 mmol/L (3.5-5.1)
[2025-04-13 07:41] VITALS: BP 124/56; PULSE 70; RESP 20; TEMP 98; O2SAT 98
[2025-04-13] MEDS: LOKELMA POWDER PO SCH (10:49)
--- NOTE | 2025-04-14 11:41 | PCM.PROG ---
Progress Note Progress Note for Day of Date of Exam: 04/10/25 Subjective Subjective: Patient is a 89 year old female admitted to a swing bed for physical therapy. She is doing well. No acute events overnight. She is ambulating and working with physical therapy. Patient is suppose to f/u with Urology in [facility]. Labs/imaging reviewed: -WBC 4.5, hemoglobin 8.9, platelets 216, sodium 143, potassium 5.3, creatinine 1.55, glucose 102. Plan: Continue physical therapy as tolerated. Encourage hydration. Continue home medications. Repeat labs as needed. Fall precautions. Replace electrolytes as per protocol. Past Medical Family Social History Allergies: Allergies amoxicillin Allergy (Verified 03/15/25 08:25) nystatin Allergy (Verified 03/15/25 08:25) Review of Systems ROS changes noted: see HPI Vital Signs and I&O's Intake and Output: Intake & Output 04/11/25 04/12/25 04/13/25 04/14/25 23:59 23:59 23:59 23:59 Intake Total 1707 / 1707 880 / 880 100 / 100 Balance 1707 / 1707 880 / 880 100 / 100 Physical Exam Oriented: Normal Respiratory: Normal Cardiovascular: Normal Auscultation: Bowel Sounds: Normal Tenderness: Normal Skin: Normal Musculoskeletal: Normal Psychiatric: Normal Mood Description: Calm Affect: Normal Speech Pattern: Clear and Appropriate Laboratory and Diagnostics 04/13/25 05:19 04/13/25 05:19 Labs: Laboratory WBC 5.5 X10^3/uL (3.6-10.0) 04/13/25 05:19 RBC 3.61 X10^6/uL (3.5-5.4) 04/13/25 05:19 Hgb 9.1 g/dL (12.0-16.0) L 04/13/25 05:19 Hct 28.2 % (36.0-47.0) L 04/13/25 05:19 MCV 78.2 fL (80.0-100.0) L 04/13/25 05:19 MCH 25.3 pg (27.0-34.0) L 04/13/25 05:19 MCHC 32.4 g/dL (33.0-35.0) L 04/13/25 05:19 RDW 16.8 % (11.6-16.5) H 04/13/25 05:19 Plt Count 188 X10^3/uL (150.0-450.0) 04/13/25 05:19 Plt Count Comment Adequate (ADEQUATE) 04/10/25 05:15 MPV 8.4 fL (7.4-11.0) 04/13/25 05:19 Neut % (Auto) 60.2 % (42.0-75.0) 04/13/25 05:19 Lymph % (Auto) 27.7 % (21.0-51.0) 04/13/25 05:19 [place] % (Auto) 9.1 % (0.0-13.0) 04/13/25 05:19 Eos % (Auto) 2.5 % (0.9-2.9) 04/13/25 05:19 Baso % (Auto) 0.5 % (0.2-1.0) 04/13/25 05:19 Neut # (Auto) 3.3 x10^3/uL (2.2-4.8) 04/13/25 05:19 Lymph # (Auto) 1.5 X10^3/uL (1.3-2.9) 04/13/25 05:19 [place] # (Auto) 0.5 x10^3/uL (0.3-0.8) 04/13/25 05:19 Eos # (Auto) 0.1 x10^3/uL (0.0-0.2) 04/13/25 05:19 Baso # (Auto) 0.0 X10^3/uL (0.0-0.1) 04/13/25 05:19 Absolute Nucleated RBC 0.1 /100WBC 04/13/25 05:19 Total Counted 100 04/10/25 05:15 Neutrophils % (Manual) 55 % (39-76) 04/10/25 05:15 Band Neutrophils % 1 % (0-10) 04/08/25 05:17 Lymphocytes % (Manual) 32 % (13-43) 04/10/25 05:15 Monocytes % (Manual) 12 % (4-9) H 04/10/25 05:15 Eosinophils % (Manual) 1 % (0-6) 04/10/25 05:15 Atypical Lymphocytes Present 04/10/25 05:15 Plt Morphology Comment Normal (NORMAL) 04/10/25 05:15 RBC Morphology Abnormal (NORMAL) A 04/10/25 05:15 Hypochromasia Slight A 04/10/25 05:15 Microcytosis Slight A 04/10/25 05:15 Sodium 140 mmol/L (136-145) 04/13/25 05:19 Corrected Sodium TNP 04/13/25 05:19 Potassium 5.8 mmol/L (3.5-5.1) H 04/13/25 05:19 Chloride 104 mmol/L (98-107) 04/13/25 05:19 Carbon Dioxide 31.3 mmol/L (21-32) 04/13/25 05:19 BUN 23 mg/dL (7-18) H 04/13/25 05:19 Creatinine 1.49 mg/dL (0.55-1.02) H 04/13/25 05:19 Est GFR (MDRD) Af Amer 42 (>60) L 04/13/25 05:19 Est GFR (MDRD) Non-Af 35 (>60) L 04/13/25 05:19 Glucose 108 mg/dL (65-99) H 04/13/25 05:19 Calcium 9.4 mg/dL (8.5-10.1) 04/13/25 05:19 Corrected Calcium 10.4 mg/dL (8.5-10.1) H 04/13/25 05:19 Total Bilirubin 0.20 mg/dL (0.2-1.0) 04/13/25 05:19 AST 14 Units/L (15-37) L 04/13/25 05:19 ALT 17 Units/L (12-78) 04/13/25 05:19 Alkaline Phosphatase 85 Units/L (46-116) 04/13/25 05:19 Total Protein 7.2 g/dL (6.4-8.2) 04/13/25 05:19 Albumin 2.8 g/dL (3.4-5.0) L 04/13/25 05:19 Globulin 4.4 g/dL (2.5-4.5) 04/13/25 05:19 Albumin/Globulin Ratio 0.6 Ratio (1.1-2.1) L 04/13/25 05:19 Plan (1) Muscular deconditioning: Status: Acute (2) Right kidney mass: Status: Acute (3) Poor appetite: Status: Acute (4) Mixed hyperlipidemia: Status: Chronic (5) Essential (primary) hypertension: Status: Chronic (6) H/O right nephrectomy: Status: Acute (7) Constipation: Status: Acute
== END 2025-04-13 11:05 | disposition home or self-care (01) | DRG 700 ==
LOC: MED/SURG 15:25
PROVIDERS: ADMIT Family Medicine; ATTEND Family Medicine
DX: Z51.89 Encounter for other specified aftercare; R27.8 Other lack of coordination; S51.811A Laceration without foreign body of right forearm, initial encounter; I10 Essential (primary) hypertension; Z90.5 Acquired absence of kidney; X58.XXXA Exposure to other specified factors, initial encounter; R63.0 Anorexia; Z68.25 Body mass index [BMI] 25.0-25.9, adult; R29.898 Other symptoms and signs involving the musculoskeletal system; M62.81 Muscle weakness (generalized); R26.81 Unsteadiness on feet; E78.2 Mixed hyperlipidemia; K59.09 Other constipation; Z74.1 Need for assistance with personal care; N28.89 Other specified disorders of kidney and ureter; Z85.528 Personal history of other malignant neoplasm of kidney